=== PATIENT | female | born 1980 | race Caucasian/White ===

== ENCOUNTER 2025-02-22 10:13 | Emergency (ER) | payer OTHER, SELFPAY ==
[2025-02-22] VITALS (24 sets, daily range): BP systolic 125–161; BP diastolic 74–130; PULSE 75–81; RESP 16–18; TEMP 36.7–37.1; O2SAT 98–100
--- NOTE | ~2025-02-22 | US_ITS ---
US abdomen limited INDICATION: Evaluation of the spleen. PROCEDURE: Realtime right upper abdominal ultrasound. COMPARISON: No prior studies for comparison. FINDINGS: The pancreas is not well visualized due to bowel gas. Liver echotexture is normal without focal mass or intrahepatic biliary dilatation. There is normal directional flow in the portal vein. Gallbladder contains gallbladder polyps without evidence of adenomyomatosis. There is an echogenic fo cus at the gallbladder neck which may represent a polyp or nonshadowing stone. Common bile duct scarlet ures 2 mm. No sonographic Lundy's sign. There are multiple splenic cysts, largest measuring 1.7 cm. Spleen measures 12.4 cm. IMPRESSION: 1: Gallbladder polyps with adenomyomatosis. Possible gallstone at the gallbladder neck versus gallbla dder polyp. No secondary findings to support cholecystitis. Reviewed, dictated and finalized at location A. IMPRESSION: 1: Gallbladder polyps with adenomyomatosis. Possible gallstone at the gallbladd er neck versus gallbladder polyp. No secondary findings to support cholecystiti s.
--- NOTE | ~2025-02-22 | CT_ITS ---
CLINICAL INDICATION: Left-sided abdominal pain with intermittent diarrhea COMPARISON: None. TECHNIQUE: Multiple contiguous axial images of the abdomen and pelvis were performed following the ad ministration of with 100 mL Omnipaque-350 intravenous contrast The dose-length product (DLP) was 1291.46 mGy-cm. Automated exposure control and iterative reconstruction technique were employed. FINDINGS/OBSERVATIONS: Visualized lower thorax: The bilateral lung bases are clear. The heart is of normal size, without pericardial effusion. Small hiatal hernia is present. Liver: 8 mm focus of fluid attenuation within segment 7 of the liver, too small to characterize, but likely a cyst. The remainder of the liver otherwise demonstrates homogeneous enhancement and is not enlarged. Gallbladder and biliary system: The gallbladder is only minimally distended, and otherwise unremarkable. Pancreas: The pancreas enhances homogeneously without ductal dilatation. Spleen: 16 mm focus of decreased attenuation within the lateral margin of the lower border of the spl een, benign in morphology for which focused ultrasound may be performed for confirmation of its benig nity. Multiple splenules are also detected. The remainder of the spleen otherwise enhances homogeneously and is not enlarged. Kidneys: The bilateral kidneys enhance symmetrically without hydronephrosis or renal calculi. Adrenal glands: Unremarkable. Gastrointestinal tract: Colonic diverticulosis without surrounding inflammatory change. Fecal stasis within the colon. Appendix: Surgically absent. Vasculature: Unremarkable. Lymph nodes: No pathologically enlarged or morphologically suspicious lymph nodes within the retroperitoneum or at the root of the mesentery. Pelvic structures: The bladder is distended, and otherwise unremarkable. The uterus is surgically absent (secondary to endocervical adenocarcinoma). Bilateral ovaries are visualized. Body wall and musculoskeletal: Complex multilobulated fat-containing umbilical hernia. No significant degenerative disease within the lower thoracic or lumbosacral spine. IMPRESSION: Irregularity in the parenchyma of the spleen for which focused ultrasound may be performed for confir mation of its benignity. Subcentimeter focus of fluid attenuation within the liver, likely a cyst for which focused ultrasound of segment 7 of the liver performed for confirmation. Otherwise, no acute findings within the lower chest, abdomen or pelvis to account for patient's sympt oms. Reviewed, dictated and finalized at location A. IMPRESSION: Irregularity in the parenchyma of the spleen for which focused ultrasound may b e performed for confirmation of its benignity. Subcentimeter focus of fluid attenuation within the liver, likely a cyst for wh ich focused ultrasound of segment 7 of the liver performed for confirmation. Otherwise, no acute findings within the lower chest, abdomen or pelvis to accou nt for patient's symptoms.
--- OUTSIDE RECORDS SUMMARY | 2025-02-22 10:15 | XMS_ITS | Referral Summary ---
Author Organization [facility] Address [address] [address] Phone Care Team Providers Care Director Online Marketing Name Role Phone Idris Carvalho DO Primary Care Provider [phone] Kyle Sanchez MD Unavailable [phone] Allergies Active Allergy Reactions Criticality Noted Date Comments Latex Itching Low Reaction: ITCHING Sulfa (Sulfonamide Antibiotics) Hives Low Reaction: HIVES, Reaction: hives, , Sulfasalazine Hives Medium 12/09/2017 Medications SOOLANTRA 1 % cream Apply 1 application topically daily 8 Active vitamin b complex tablet Take 1 tablet by mouth daily Active Active Problems Problem Noted Date Diagnosed Date Abnormal findings on diagnostic imaging of breas t 03/16/2019 Breast mass 03/16/2019 Irritable bowel syndrome with diarrhea 9 h/o adenocarcinoma in situ of cervix 10/22/2018 Overview (09/12/2020): Vag hyst/BS w/electric milkers installer onc 01/15 Per electric milkers installer onc, annual cytology/HPV x 3 years, then every 5 years until 2038 Migraine with aura 10/28/2013 Overview (01/03/2017): Migraine, classical Resolved Problems Problem Noted Date Diagnosed Date Resolved Date Cyst of ovary 09/05/2020 09/05/2020 Pain in pelvis 09/05/2020 09/05/2020 Nipple crusting 08/08/2018 11/25/2018 Immunizations Immunization Administration Dates Next Due Influenza, Quadrivalent, Spl it, Preservative Free, Intramuscular 08/07/2020 Influenza, Unspecified 07/30/2018 Social History Tobacco Use Types Packs/Day Years Used Date Smoking Tobacco: Never Smokeless Tobacco: Never Alcohol Use Standard Drinks/Week Comments No 0 (1 standard drink = 0.6 oz pur e alcohol) Humiliation, Afraid, Rape, and Kick questionnair e Answer Date Recorded Within the last year, have y ou been afraid of your partner or ex-partner? No 09/05/2020 Within the last year, have y ou been humiliated or emotionally abused in other ways by your partner or ex-partner? No Within the last year, have y ou been kicked, hit, slapped, or otherwise physically hurt by your partner or ex-partner? No 09/05/2020 Within the last year, have y ou been raped or forced to have any kind of sexual activity by your partner or ex-partner? No 09/05/2020 Social Connection and Isolation Panel [NHANES] A nswer Date Recorded Frequency of Communication with Friends and Fami ly Not on file 09/05/2020 Frequency of Social Gatherings with Friends and Family Not on file 09/05/2020 Attends Muslim Services Not on file 09/05 Active Member of Clubs or Organizations Not on f ile 09/05/2020 Attends Club or Organization Meetings Not on lucrecia e 09/05/2020 Are you , , di vorced, , never , or living with a partner? 09/05/2020 Exercise Vital Sign Answer Date Recorde d On average, how many days pe r week do you engage in moderate to strenuous exercise (like a brisk walk)? 7 days 09/05/2020 On average, how many minutes do you engage in exercise at this level? 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 on file Not on lucrecia e Not on file Last Filed Vital Signs Vital Sign Reading Time Taken Comments Blood Pressure 120/80 2023 9:07 AM CDT Pulse 68 03/04/2019 2:27 PM CDT Temperature 36.7 C (98.1 F) 03/04/2019 2:27 PM CDT Respiratory Rate 16 03/04/2019 2:27 PM CDT Oxygen Saturation 100% 03/04/2019 2:27 PM CDT Inhaled Oxygen Concentration - - Weight 99.3 kg (219 lb) 2023 9:07 AM CDT Height 167.6 cm (5' 6) 2023 9:07 AM CDT Body Mass Index 35.35 2023 9:07 AM CDT Plan of Treatment Not on file Medical Devices Implanted Type Area Limnologist Device Identifier Shelf Expiration Date Model / Serial / Lot iPling Partnership Marker Biospy Site Mini Cork Shape Securmark Dakota-Coriero - [id number] Implanted:Qty: 1 on 01/02/2024 by Daquan Morales MD at [facility] Clip Left: Breast [employer] Partnership [id number] 09/02/2024 OLAFK-CORI ERO / / [id number] [employer] Limited Partnership Trimark Rigid End Hourglass Marker Breast Biopsy Titanium [id number]-[id number]-8 s-13 - [id number] Implanted:Qty: 1 on 01/16/2024 by Daquan Morales MD at [facility] [employer] Partnership [id number] 04/17/2024 TRIMARK-E VIVA-2S-1 3 / / [id number] Procedures Procedure Name Priority Date/Time Associated Diagnosis Comments DIAGNOSTIC MAMMOGRAM BILATERAL W MIKA Schedule Routine, Read Routine (OP Routine) 09/30/2024 9:41 AM FUR TRAPPER Abnormal finding on imaging PAP AND HIGH RISK HPV, REFLEX TO GENOTYPING Routine 2023 9:56 AM CDT Encounter for well woman exam from Last 3 Months or Most Recently Relevant to Health Maintenance Results * Diagnostic Mammogram Bilateral W Mika (09/30/2024 9:41 AM FUR TRAPPER) Anatomical Region Laterality Modality Breast Bilateral Mammography 09/30/2024 9:47 AM FUR TRAPPER Impressions 09/30/2024 9:47 AM FUR TRAPPER No mammographic evidence to suggest malignancy is seen. The patient may return to screening mammography as per ACR guidelines. OVERALL FINAL ASSESSMENT: BI-RADS Category 2: Benign. Electronically signed by: Patricia Garcia M.D. Narrative 09/30/2024 9:47 AM FUR TRAPPER EXAMINATION: DIGITAL DIAGNOSTIC BILATERAL MAMMOGRAM INCLUDING CAD AND BILATERAL DIGITAL BREAST TOMOSYNTHESIS HISTORY: Follow-up biopsies on the left COMPARISON: Multiple studies from 2023 TECHNIQUE: Digital mammographic views of the bilateral were performed, including computer aided detection (CAD) and bilateral digital breast tomosynthesis (DBT). BREAST PARENCHYMAL COMPOSITION: The breast tissue shows scattered fibroglandular elements. MAMMOGRAM FINDINGS: There are 2 biopsy markers on the left. No suspicious masses are seen. No suspicious calcifications are seen. There is no unexplained architectural distortion. There is no skin thickening. No axillary adenopathy is seen mammographically. us Daquan Morales MD IMG MAMMO PROCEDURES Final Res ult * Pap and High Risk HPV and Genotyping (Cytology Component) (2023 9:56 AM CDT) Thin prep (Pap test) 2023 9:56 AM CDT 2023 6:34 PM CDT Narrative PATHOLOGY [facility] - 01/07/2024 6:37 AM CDT EPIC results best viewed via link to PDF [facility] [place] [address] Note to Patients: This report may contain a detailed description of human tissue sent by a health care provider to the laboratory for pathologic evaluation. The content of this report is essential for diagnosis and may provide important critical findings. This information may be unfamiliar to patients to review without a medical professional present. It is advised that the patient review this report in the presence of a health care provider who can answer questions and explain the details. CYTOPATHOLOGY REPORT FINAL Patient Name: ZEHRA TO Gender: F : 1980 (Age: 43) Address: [address] [place] [address] , [place] [address] [facility] #: [id number] Service: DEFAULT Location: Patient Type: E SPECIMEN Taken: 2023 Received: 2023 Accessioned: 12/31/2023 Reported: 01/07/2024 Physician(s): Diana Peres M.D. FINAL INTERPRETATION SOURCE OF SPECIMEN Liquid based Thin Prep pap with HPV: STATEMENT OF ADEQUACY - Satisfactory for evaluation - Endocervical cells/transformation zone sample absent GENERAL CATEGORIZATION: - Negative for squamous intraepithelial lesion or malignancy Comments (Normal-Negative for High Risk HPV) HPV HR 16- Not detected HPV HR 18-Not detected HPV HR non 16/18- Not detected Interpretive Data Nucleic acid amplification for detection of high-risk Human Papilloma virus (HPV) is performed by the Kimberly James 6800 HPV test. This assay specifically detects HPV- 16 and HPV-18 genotypes. The following HPV genotypes are detected as high-risk HPV: HPV-31, 33, 35, 39, 45, 51, 52, 56, 58, 59, 66, and 68. This assay has been approved by the [place] States Food and Drug Administration for detection of HPV in cervical specimens collected by a physician using an endocervical brush/spatula or cervical broom and placed in the ThinPrep Pap Test PreservCyt collection containers. The performance characteristics of this test have been verified by the [facility] laboratory. Correlate with reported cytology results, as applicable. Interpretive data last revised 23 This specimen has been rescreened in accordance with this laboratory's Cotton Breeder Program. adrianne/01/07/2024 06:37 Therese Dooley MS, CT (ASCP) Report Electronically Reviewed and Signed Out By TOMER Kuo(ASCP) 01/07/2024 06:37:49 Cervicovaginal Cytology (Pap Test) Disclaimer: The Pap test is a screening test used to detect cervical cancer and its precursors; it is not a diagnostic procedure. False negative and false positive results do occur. Pap test results should be interpreted in the context of pertinent clinical information and biopsy results as indicated. [facility] Clinical Laboratory Improvement Amendments (CLIA) mandate that cytologic and histologic results be correlated for laboratory quality control engineer & improvement standards. FOR ALL HIGH-GRADE CASES we request submission of follow-up histological material and/or reports that have not been previously provided so that we may fulfill said required standards. Gross Description A. Liquid based Thin Prep pap with HPV: Vaginal - Screening ThinPrep Clinical Diagnosis and History Last Menstrual Period: hyst The patient is a 43 year old woman with screening. Report Images and scanned documents, if included only viewable in PDF version The performance characteristics of some immunohistochemical stains, in-situ hybridization and fluorescence in-situ hybridization tests and immunophenotyping by flow cytometry cited in this report (if any) were determined by the Surgical Pathology Department at [facility] as part of an ongoing quality control microbiologist program and in compliance with federally mandated regulations drawn from the Clinical Laboratory Improvement Act of 1988 (CLIA '88). Some of these tests rely on the use of analyte specific reagents and are subject to specific labeling requirements by the US Food and Drug Administration. Such diagnostic tests may only be performed in a facility that is certified by the Department of Health and Human Services as a high complexity laboratory under CLIA '88. The FDA has determined that such clearance or approval is not necessary. This test is used for clinical purposes. It should not be regarded as investigational or for research. Nevertheless, federal rules concerning the medical use of analyte specific reagents require that the following disclaimer be attached to the report: This test was developed and its performance characteristics determined by the Surgical Pathology Department of [facility]. It has not been cleared or approved by the U. S. Food and Drug Administration. Diana Peres MD LAB CYTOLOGY ORDERABLES F inal Result [facility] from Last 3 Months or Most Recently Relevant to Health Maintenance Insurance [facility] PPO [facility] Advance Directives For more information, please contact: [phone] * Full Code (Latest Code Status on File) Date Activated Date Inactivated Comments 01/25/2019 12:21 PM 01/25/2019 11:33 PM Care Teams Director Online Marketing Relationship Specialty Start Date End Date Idris Carvalho DO PCP - General 04/29/14 Kyle Sanchez MD Consulting Physician Obstetrics and Gynecology 10/13/18
--- OUTSIDE RECORDS SUMMARY | 2025-02-22 10:15 | XMS_ITS | Clinical Summary ---
Author Organization [facility] Address [address] [address] Phone Care Team Providers Care Vegetable Farming Supervisor Name Role Phone Idris Carvalho DO Primary Care Provider [phone] Kyle Sanchez MD Unavailable [phone] Allergies Active Allergy Reactions Criticality Noted Date [...] of cervix 10/22/2018 Overview (09/12/2020): Vag hyst/BS w/livestock sales representative onc 01/15 Per livestock sales representative onc, annual cytology/HPV x 3 years, then every 5 years until 2038 Migraine with aura 10/28/2013 Overview (01/03/2017): Migraine, classical Resolved Problems Problem Noted Date Diagnosed Date Resolved Date Cyst of ovary 09/05/2020 09/05/2020 Pain in pelvis 09/05/2020 09/05/2020 Nipple crusting 08/08/2018 11/25/2018 Immunizations Immunization Administration Dates Next Due Influenza, Quadrivalent, Spl it, Preservative Free, Intramuscular 08/07/2020 Influenza, Unspecified 07/30/2018 Surgical History Surgery Date Site/Laterality Comments ENDOMETRIAL ABLATION 08/29/2015 - 09/28/2015 for menorrhagia/fibroids, Novasure LAPAROSCOPIC APPENDECTOMY 09/29/2006 - 09/28/2007 CONIZATION 09/29/2018 - 09/28/2019 APPENDECTOMY WISDOM TOOTH EXTRACTION VAGINAL HYSTERECTOMY 12/28/2018 - 01/26/2019 salpingectomies BREAST BIOPSY HYSTERECTOMY BREAST BIOPSY 01/02/2024 Left BREAST BIOPSY 01/16/2024 Left Medical History Medical History Date Comments Depression AVM (arteriovenous malformation) brain no intervention reported as stable Rosacea IBS (irritable bowel syndrome) PONV (postoperative nausea and vomiting) Cyst of ovary 09/05/2020 Pain in pelvis 09/05/2020 Family History Medical History Relation Name Comments Alzheimer's disease Father Heart attack Father Alzheimer's disease Father's Brother Uterine cancer Maternal Grandmother Breast cancer Maternal cousin Other Other 1 Asthma Other 2 Other Other 3 Family history of Lee's palsy; Multiple sclerosis Other 4 Family hi story of Multiple sclerosis; Other Other 5 Family history of Peripheral nerve disease; Throat cancer Paternal Grandfather Alzheimer's disease Paternal Grandmother Bone cancer Paternal Grandmother Breast cancer Paternal Grandmother Cervical cancer Paternal Grandmother Cervical cancer Sister Colon cancer Neg Hx Ovarian cancer Neg Hx Relation Name Status Comments Father (Age 74) from Alzhe augusto's & parkinsonism Father's Brother Maternal Grandmother Maternal cousin Mother Alive Other 1 Other 2 Other 3 Other 4 Other 5 Paternal Grandfather Paternal Grandmother Sister Alive Social History Tobacco Use Types Packs/Day Years [...] and Family Not on file 09/05/2020 Attends Denominational Services Not on file 09/05 Active Member [...] PM CDT Legal Sex Female 3:10 AM MOUNTER SMOKING PIPE Gender Identity Female 09/09/2019 9:04 AM MOUNTER SMOKING PIPE Sexual Orientation Straight 09/09/2019 9: 04 AM MOUNTER SMOKING PIPE 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 labor x 2, bedrest & terb pump until delivery. No GDM, HTN/preE/PPH/PPD. Did not breastfeed. Last Filed Vital Signs Vital Sign Reading [...] 2023 9:07 AM CDT Plan of Treatment Health Maintenance Due Date Last Done Comments Depression Screening 1980 Hepatitis C Screening 1980 DTaP/Tdap/Td Vaccine (1 - Tdap) 12/31/1991 Varicella Vaccines (1 of 2 - 13+ 2-dose series) 1993 Hepatitis B Screening 1998 Regular Well Visit/Exam 18-64 12/29/2024 2023, 09/05/2020, 10/13/2018 Influenza Vaccine (Season Ended) 2025 08/07/2020, 07/30/2018 Breast Cancer Screening-Mammogram 09/30/2025 09/30/2024, 11/13/2023, 09/14/2019 Cervical Cancer Screening Discontinued 2023, 2023, 09/05/2020 HPV Vaccines Aged Out No longer eligi ble based on patient's age to complete this topic Pneumococcal vaccine <65 Aged Out No longer eligible based on patient's age to complete this topic Medical Devices Implanted Type Area Stencil Typist Device Identifier Shelf Expiration Date Model / Serial / Lot Hologic Limited Partnership Marker Biospy Site Mini Cork Shape Securmark Yasemink-Celero - [id number] Implanted:Qty: 1 on 01/02/2024 by Daquan Morales MD at [facility] Clip Left: Breast [employer] Partnership [id number] 09/02/2024 TERRI-CORI ERO / / [id number] Hologic Limited Partnership Trimark Rigid End Hourglass Marker Breast Biopsy Titanium Svvafow-Mgwhu-3 s-13 - [id number] Implanted:Qty: 1 on 01/16/2024 by Daquan Morales MD at [facility] [employer] Partnership [id number] 04/17/2024 LAKESHA-Danay JENNINGS-2S-1 3 / / [id number] Procedures Procedure Name Priority Date/Time Associated Diagnosis Comments DIAGNOSTIC MAMMOGRAM BILATERAL W MIKA Schedule Routine, Read Routine (OP Routine) 09/30/2024 9:41 AM MOUNTER SMOKING PIPE Abnormal finding on imaging PAP AND HIGH RISK HPV, REFLEX TO GENOTYPING Routine 2023 9:56 AM CDT Encounter for well woman exam from Last 3 Months or Most Recently Relevant to Health Maintenance Results * Diagnostic Mammogram Bilateral W Mika (09/30/2024 9:41 AM MOUNTER SMOKING PIPE) Anatomical Region Laterality Modality Breast Bilateral Mammography 09/30/2024 9:47 AM MOUNTER SMOKING PIPE Impressions 09/30/2024 9:47 AM MOUNTER SMOKING PIPE No mammographic evidence to suggest malignancy is seen. The patient may return to screening mammography as per ACR guidelines. OVERALL FINAL ASSESSMENT: BI-RADS Category 2: Benign. Electronically signed by: Patricia Garcia M.D. Narrative 09/30/2024 9:47 AM MOUNTER SMOKING PIPE EXAMINATION: DIGITAL DIAGNOSTIC BILATERAL MAMMOGRAM INCLUDING CAD [...] CDT 2023 6:34 PM CDT Narrative PATHOLOGY [facility] - 01/07/2024 6:37 AM CDT EPIC results best viewed via link to PDF [facility] [place] [address] Note to Patients: This report may contain [...] Gender: F : 1980 (Age: 43) Address: [address] [place] [id number] [facility] #: [id number] Service: DEFAULT Location: Patient Type: [facility] SPECIMEN Taken: 2023 Received: 2023 Accessioned: 12/31/2023 [...] this test have been verified by the [facility] laboratory. Correlate with reported cytology results, as applicable. Interpretive data last revised 23 This specimen has been rescreened in accordance with this laboratory's Adobe Ball Mixer Program. adrianne/01/07/2024 06:37 Therese Dooley MS, CT [...] clinical information and biopsy results as indicated. [facility] Clinical Laboratory Improvement Amendments (CLIA) mandate that cytologic and histologic results be correlated for laboratory it quality analyst & improvement standards. FOR ALL HIGH-GRADE CASES [...] determined by the Surgical Pathology Department at [facility] as part of an ongoing quality assurance monitor program and in compliance with federally mandated [...] determined by the Surgical Pathology Department of [facility]. It has not been cleared or approved by the U. S. Food and Drug Administration. Diana Peres MD LAB CYTOLOGY ORDERABLES F inal Result [facility] from Last 3 Months or Most Recently Relevant to Health Maintenance Insurance [facility] PPO [facility] PPO [employer] PPO Advance Directives For more information, please contact: [phone] * Full Code (Latest Code Status on File) Date Activated Date Inactivated Comments 01/25/2019 12:21 PM 01/25/2019 11:33 PM Care Teams Vegetable Farming Supervisor Relationship Specialty Start Date End Date Idris Carvalho DO PCP - General 04/29/14 Kyle Sanchez MD Consulting Physician Obstetrics and Gynecology 10/13/18
--- OUTSIDE RECORDS SUMMARY | 2025-02-22 10:15 | XMS_ITS | Clinical Summary ---
Author Organization [facility] Address [address] [place] [address] Care Team Providers Care Research Quality Assurance Specialist Name Role Phone Idris Carvalho DO Primary Care Provider [phone] Source Comments [facility],non-owned Affiliates and Associated Physician Practices is amultiple site organization consisting of ambulatory clinics and hospital sitesin [place], [place], [place] and [place]. This disclosure is being madepursuant to the Care Everywhere program and may not contain all informatio navailable regarding this patient. Last updated 18.[facility] Allergies Active Allergy Reactions Criticality Noted Date Comments Sulfa Drugs Urticaria Medium 12/09/2017 Medications * Be aware that medications may not be up to date on this document. Alwaysverify current medications with the patient. Lactobacillus (PROBIOTIC ACIDOPHILUS PO) Acti ve Family History Medical History Relation Name Comments Alzheimer's Disease Father Other - Cardiac Father [place] x2, first at age 52 Osteoporosis Mother Relation Name Status Comments Father Mother Alive Social History Tobacco Use Types Packs/Day Years Used Date Smoking Tobacco: Never Smokeless Tobacco: Never Comments No Sex and Gender Information Value Date Recorded Sex Assigned at Not on file Legal Sex Female 7:11 AM CDT Gender Identity Not on file Sexual Orientation Not on file Last Filed Vital Signs Vital Sign Reading Time Taken Comments Blood Pressure 118/80 07/02/2019 9:58 AM CDT Pulse 90 07/02/2019 9:58 AM CDT Temperature 36.8 C (98.2 F) 07/02/2019 9:58 AM CDT Respiratory Rate 16 07/02/2019 9:58 AM CDT Oxygen Saturation 97% 07/02/2019 9:58 AM CDT Inhaled Oxygen Concentration - - Weight 73.9 kg (163 lb) 07/02/2019 9:58 AM CDT Height 168.9 cm (5' 6.5) 07/02/2019 9:58 AM CDT Body Mass Index 25.91 07/02/2019 9:58 AM CDT Plan of Treatment Health Maintenance Due Date Last Done Comments LIPID TESTING 1980 MAMMOGRAM 1980 HIV SCREENING 12/31/1995 HEPATITIS C SCREENING 12/26/1998 DTAP/TDAP/TD VACCINES (1 - Tdap) 12/31/1999 HEPATITIS B VACCINE (1 of 3 - 19+ 3-dose series) 12/31/1999 COVID-19 VACCINE ( - 2023-2 5 season) 2024 DEPRESSION SCREENING 09/29/2024 INFLUENZA VACCINE (Season Ended) 2025 07/30/20 18 ZOSTER VACCINE (1 of 2) 2030 HIB VACCINE Aged Out No longer eligi ble based on patient's age to complete this topic HPV VACCINE Aged Out No longer eligi ble based on patient's age to complete this topic MENINGOCOCCAL (Group B) VACC INE SHARED DECISION-MAKING Aged Out No longer eligibl e based on patient's age to complete this topic MENINGOCOCCAL GROUPS A/C/Y/W VACCINE Aged Out No longer eligible b ased on patient's age to complete this topic PNEUMOCOCCAL VACCINE Aged Out No long er eligible based on patient's age to complete this topic Insurance ANTHEM Care Teams Research Quality Assurance Specialist Relationship Specialty Start Date End Date Idris Carvalho DO PCP - General Internal Medicine 12/09/17
--- OUTSIDE RECORDS SUMMARY | 2025-02-22 10:15 | XMS_ITS | Clinical Summary ---
Author Organization [facility] Address [address] [place] [address] Phone Care Team Providers Care Cement Based Materials Pump Tender Name Role Phone Idris Carvalho DO Primary Care Provider Allergies Active Allergy Reactions Criticality Noted Date Comments Sulfa (Sulfonamide Antibiotics) Hives High 02/2015 Medications SUMAtriptan (IMITREX) 50 mg tablet Take 50 mg by mouth every 2 hours as needed for Headaches may repeat in 2 hours; max dose 200mg in 24 hours . Active NAPROXEN SODIUM (ALEVE ORAL) Take by mouth. Ac tive ondansetron (ZOFRAN) 4 mg Tablet Take 1 Tab (4 mg) by mouth every 8 hours as needed for Nausea/Emesis. 20 Tab None 5 Active HYDROcodone-casimiro taminophen (NORCO) 5-325 mg tablet Take 2 Tabs by mouth every 6 hours as needed for Pain. Max Daily Amount: 8 Tabs 20 Tab None 5 Active Social History Tobacco Use Types Packs/Day Years Used Date Smoking Tobacco: Never Comments Unknown Sex and Gender Information Value Date Recorded Sex Assigned at Not on file Legal Sex Female 1:32 PM CDT Gender Identity Not on file Sexual Orientation Not on file Last Filed Vital Signs Vital Sign Reading Time Taken Comments Blood Pressure 118/69 01/02/2015 5:30 PM CDT Pulse 96 01/02/2015 1:39 PM CDT Temperature 36.7 C (98.1 F) 01/02/2015 1:39 PM CDT Respiratory Rate 14 01/02/2015 4:30 PM CDT Oxygen Saturation 99% 01/02/2015 5:30 PM CDT Inhaled Oxygen Concentration - - Weight 63.5 kg (140 lb) 01/02/2015 1:39 PM CDT Height 167.6 cm (5' 6) 01/02/2015 1:39 PM CDT Body Mass Index 22.6 01/02/2015 1:39 PM CDT Plan of Treatment Health Maintenance Due Date Last Done Comments DTAP/TDAP/TD VACCINES (1 - Tdap) 12/31/1999 HEPATITIS B VACCINES (1 of 3 - 19+ 3-dose series) 12/31/1999 HPV/Cotest (21-29) 2001 CERVICAL CANCER SCREENING 2010 HPV/Cotest (30-65) 2010 PAP SMEAR 2010 BREAST CANCER SCREENING 2020 INFLUENZA VACCINE (#1) 2024 HPV VACCINES Aged Out No longer eligi ble based on patient's age to complete this topic Insurance [id number] BLUE ACCESS CHOICE Care Teams Cement Based Materials Pump Tender Relationship Specialty Start Date End Date Idris Carvalho DO PCP - General 09/14/15
[2025-02-22] MEDS: SODIUM CHLORIDE 0.9% IV 1,000 ML 999 ML IV CONT (12:21)
[2025-02-22 12:33] LABS: Basophils Percent Auto 0.2 % (0.2-1.2); Eosinophils Percent Auto 0.6 % (0-4.4); Hematocrit 43.9 % (37.0-47.0); Hemoglobin 14.1 g/dL (12.0-15.0); Immature Granulocyte Absolute 0.01 K/mm3 (0.00-0.031); Immature Granulocyte Percent A 0.2 % (0-0.5); Lymphocytes Absolute Auto 1.53 K/mm3 (0.9-3.2); Lymphocytes Percent Auto 31.3 % (18.3-44.2); Mean Corpuscular HGB Conc 32.1 g/dl (32-36); Mean Corpuscular Hemoglobin 27.6 pg (26-34); Mean Corpuscular Volume 85.9 fl (80-100); Mean Platelet Volume 11.8 fl (7.4-10.4); Monocytes Absolute Auto 0.3 K/mm3 (0.1-0.6); Neutrophils Percent Auto 60.7 % (45.5-73.1); Platelet Count Result 261 k/mm3 (150-375); Red Blood Count 5.11 M/mm3 (4.2-5.4); Red Cell Distribution Width 13.1 % (11.5-14.5); White Blood Count 4.9 K/mm3 (4.5-10.0)
[2025-02-22 12:34] LABS: Add Urine Microscopic? NO; Appearance Urine Clear (Clear); Bilirubin Urine Negative (Negative); Blood Urine Negative (Negative); Color Urine Yellow (Yellow); Glucose Urine UA Negative (Negative); Ketones Urine Negative (Negative); Leukocyte Esterase Ur Negative LEU/UL (Negative); Nitrate Urine Negative (Negative); Protein Urine Negative (Negative); Specific Grav Ur 1.022 (1.001-1.035); Urobilinogen Urine 0.2 mg/dL (<2.0)
[2025-02-22 12:43] LABS: Alanine Aminotransferase 16 U/L (6-35); Albumin Level 4.6 g/dL (3.5-5.1); Alkaline Phosphatase 74 U/L (38-126); Anion Gap 7 mmol/L (4-12); Aspartate Amino Transferase 24 U/L (14-36); Bilirubin,Total 0.4 mg/dL (0.2-1.3); Blood Urea Nitrogen 11 mg/dL (7-17); Calcium 8.8 mg/dL (8.4-10.2); Carbon Dioxide 28 mmol/L (22-30); Chloride 105 mmol/L (98-107); Estimated CRCL calculation 102 ml/min; Estimated Glomerular Filt Rate > 60; Glucose 85 mg/dL (65-110); Lipase 106 U/L (23-300); Potassium 3.6 mmol/L (3.4-5.0); Sodium 140 mmol/L (137-145)
--- OUTSIDE RECORDS SUMMARY | 2025-02-22 12:46 | XMS_ITS | Clinical Summary ---
Author Organization [facility] Address [address] [place] [address] Phone Care Team Providers Care Guest Services Attendant Name Role Phone Idris Carvalho DO Primary [...] age to complete this topic Insurance [id number] BLUE ACCESS CHOICE Care Teams Guest Services Attendant Relationship Specialty Start Date End Date Idris Carvalho DO PCP - General 09/14/15
--- OUTSIDE RECORDS SUMMARY | 2025-02-22 12:46 | XMS_ITS | Clinical Summary ---
Author Organization [facility] [employer] Address [address] [place] [address] Care Team Providers Care Public Address Technician Name Role Phone Idris Carvalho DO Primary Care Provider [phone] Source Comments [facility] [employer],non-owned Affiliates and Associated Physician Practices is amultiple site organization consisting of ambulatory clinics and hospital sitesin [place], [place], [place] and [place]. This disclosure is being madepursuant to the Care Everywhere program and may not contain all informatio navailable regarding this patient. Last updated 18.[facility] Allergies Active Allergy Reactions Criticality Noted Date Comments Sulfa Drugs Urticaria Medium 12/09/2017 Medications * Be aware that medications may not be up to date on this document. Alwaysverify current medications with the patient. Lactobacillus (PROBIOTIC ACIDOPHILUS PO) Acti ve Family History Medical History Relation Name Comments Alzheimer's Disease Father Other - Cardiac Father [place] x2, first at age 52 Osteoporosis Mother [...] complete this topic Insurance ANTHEM Care Teams Public Address Technician Relationship Specialty Start Date End Date Idris Carvalho DO PCP - General Internal Medicine 12/09/17
--- NOTE | 2025-02-22 16:04 | ED.GENADULT ---
HPI - General Adult General Chief complaint: Abdominal Pain Stated complaint: abd pain Time Seen by Provider: 02/22/25 12:02 History of Present Illness HPI narrative: [age] old female with history of ovarian cancer status post hysterectomy and IBS presents to the emergency department for evaluation of multiple days of diarrhea, left lower quadrant tenderness to palpation and some blood in her stool. Related Data Allergies Allergy/AdvReac Type Severity Reaction Status Date / Time latex Allergy Unknown Itching Verified 02/22/25 10:22 Sulfa (Sulfonamide Allergy Unknown Hives Verified 02/22/25 10:22 Antibiotics) sulfanilamide Allergy Unknown Hives Verified 02/22/25 10:22 Review of Systems Review of Systems: All systems reviewed & are unremarkable except as noted in HPI and below PMFSH Past Medical History Medical History Fractures IBS (irritable bowel syndrome) Heartburn Chicken pox Migraine Endocervical adenocarcinoma Anxiety Breast mass, right Surgical History Surgical History H/O: hysterectomy December 2018 History of appendectomy 2006 H/O cervical biopsy 2008 Family History Family History Mother Family history of irritable bowel syndrome Father Family history of coronary artery disease Alzheimer disease Social History Social History (Updated 01/21/24 @ 14:58 by Tosha Montemayor [facility]) Social History: Caffeine-Coffee Smoking status: Never smoker Alcohol intake: never Substance use: never Substance use type: does not use Do You Feel Safe in your Home?: Yes Lack of Transportation: No Lack of Food: Never True Current Housing: I Have Housing Concerned About Future Housing: No Difficulty Paying Gas/Electric Bills: No Difficulty Paying for Meds: No Currently Unemployed: No Education: Bachelor's Degree Difficulty w/ Childcare or Family Care: No Exam Narrative: APPEARANCE: Well appearing, no pain, no distress, well-nourished. HEAD: normocephalic, atraumatic. EYES: PERRLA/EOMI, conjunctivae clear. NOSE: Normal no drainage THROAT: Pharynx clear, no exudate. NECK: Supple. No adenopathy, no masses. RESPIRATORY: Airway patent, respirations nonlabored. Clear to auscultation bilaterally, no rales, rhonchi, wheezing. CARDIOVASCULAR: Regular rate and rhythm without murmurs rubs or gallops. ABDOMINAL: Left lower quadrant tenderness to palpation MUSCULOSKELETAL: Moves all extremities. Strength/ROM intact, No edema, No calf tenderness. NEURO: Alert. Cranial nerves II through XII intact. Good gait. Good coordination SKIN: Warm, dry. Normal Color Course Vital Signs Vital signs: Vital Signs Temperature 98.1 F 02/22/25 10:19 Pulse Rate 81 02/22/25 10:19 Respiratory Rate 16 02/22/25 10:19 Blood Pressure 128/86 02/22/25 10:19 Pulse Oximetry 98 02/22/25 10:19 Oxygen Delivery Room Air 02/22/25 10:19 Temperature 98.7 F 02/22/25 12:19 Pulse Rate 75 02/22/25 12:19 Respiratory Rate 18 02/22/25 12:19 Blood Pressure 129/91 H 02/22/25 15:47 Pulse Oximetry 100 02/22/25 15:47 Oxygen Delivery Room Air 02/22/25 10:19 Medical Decision Making [facility] Narrative Medical decision making narrative: [age] old female presents to the emergency department for evaluation for left lower quadrant abdominal pain. Patient is currently afebrile with no leukocytosis, hemoglobin of 14.1. Patient has normal platelet count. Patient has no acute abnormalities on her CMP including normal T bili AST ALT alk-phos and lipase. UA was negative for infection. CT abdomen pelvis showed irregularity in the parenchyma of the spleen for which focused ultrasound may be performed for confirmation of its benignity. Subcentimeter focus of fluid attenuation within the liver, likely a cyst for which focused ultrasound of segment 7 of the liver performed for confirmation. Otherwise, no acute findings within the lower chest, abdomen or pelvis to account for patient's symptoms. Ultrasound was ordered and showed gallbladder polyps with adenomyomatosis. Possible gallstone at the gallbladder neck versus gallbladder polyp. No secondary findings to support cholecystitis. Patient has no right upper quadrant tenderness to palpation has normal liver enzymes. Low concern for acute cholecystitis. At time of evaluation patient does complain of some mild left lower quadrant pain has minimal tenderness to palpation. Patient was updated on the results of her workup.. Patient was advised to follow a clear liquid diet for the next few days. Patient was comfortable plan for discharge and close follow-up. Patient was advised to follow a clear liquid diet for the next 1-3 days. Patient was also encouraged close follow-up with GI. Differential Diagnosis Differential Diagnosis: Gastritis, colitis, diverticulitis, hepatomegaly, splenomegaly, acute cholecystitis, cholelithiasis Vital Signs Vital Signs: Vital Signs Temperature 98.1 F 02/22/25 10:19 Pulse Rate 81 02/22/25 10:19 Respiratory Rate 16 02/22/25 10:19 Blood Pressure 128/86 02/22/25 10:19 Pulse Oximetry 98 02/22/25 10:19 Oxygen Delivery Room Air 02/22/25 10:19 Temperature 98.7 F 02/22/25 12:19 Pulse Rate 75 02/22/25 12:19 Respiratory Rate 18 02/22/25 12:19 Blood Pressure 129/91 H 02/22/25 15:47 Pulse Oximetry 100 02/22/25 15:47 Oxygen Delivery Room Air 02/22/25 10:19 Lab Data Lab results reviewed: Yes I reviewed the patient's lab results. 02/22/25 12:24 02/22/25 12:24 Labs: Lab Results 02/22/25 Range/Units 12:24 WBC 4.9 (4.5-10.0) K/mm3 RBC 5.11 (4.2-5.4) M/mm3 Hgb 14.1 (12.0-15.0) g/dL Hct 43.9 (37.0-47.0) % MCV 85.9 (80-100) fl MCH 27.6 (26-34) pg MCHC 32.1 (32-36) g/dl RDW 13.1 (11.5-14.5) % Plt Count 261 (150-375) k/mm3 MPV 11.8 H (7.4-10.4) fl Immature Gran % (Auto) 0.2 (0-0.5) % Neut % (Auto) 60.7 (45.5-73.1) % Lymph % (Auto) 31.3 (18.3-44.2) % [place] % (Auto) 7.0 (2.6-8.5) % Eos % (Auto) 0.6 (0-4.4) % Baso % (Auto) 0.2 (0.2-1.2) % Lymph # (Auto) 1.53 (0.9-3.2) K/mm3 [place] # (Auto) 0.3 (0.1-0.6) K/mm3 Eos # (Auto) 0.0 (0-0.3) K/mm3 Baso # (Auto) 0.0 (0.0-0.1) K/mm3 Abs Immat Gran (auto) 0.01 (0.00-0.031) K/mm3 Absolute Neuts (auto) 3.0 (1.3-6.7) K/mm3 Absolute Nucleated RBC 0.000 (0.0-0.012) K/mm3 Nucleated RBC % 0.0 (0.0-0.2) % Sodium 140 (137-145) mmol/L Potassium 3.6 (3.4-5.0) mmol/L Chloride 105 (98-107) mmol/L Carbon Dioxide 28 (22-30) mmol/L Anion Gap 7 (4-12) mmol/L BUN 11 (7-17) mg/dL Creatinine 0.74 (0.7-1.0) mg/dL Estim Creat Clear Calc 102 ml/min Estimated GFR > 60 (59 - ) Glucose 85 (65-110) mg/dL Calcium 8.8 (8.4-10.2) mg/dL Total Bilirubin 0.4 (0.2-1.3) mg/dL AST 24 (14-36) U/L ALT 16 (6-35) U/L Alkaline Phosphatase 74 (38-126) U/L Total Protein 8.0 (6.3-8.2) g/dL Albumin 4.6 (3.5-5.1) g/dL Lipase 106 (23-300) U/L Urine Color Yellow (Yellow) Urine Appearance Clear (Clear) Urine pH 6.0 (5.0-9.0) Ur Specific [place] 1.022 (1.001-1.035) Urine Protein Negative (Negative) mg/dL Urine Glucose (UA) Negative (Negative) mg/dL Urine Ketones Negative (Negative) mg/dL Ur Blood (Man) Negative (Negative) Urine Nitrate Negative (Negative) Urine Bilirubin Negative (Negative) Urine Urobilinogen 0.2 (<2.0) mg/dL Leukocyte Esterase Rfl Negative (Negative) SIM/UL Imaging Data Radiologist's impression: Impressions Abdomen/Pelvis CT 02/22/25 13:09 IMPRESSION: Irregularity in the parenchyma of the spleen for which focused ultrasound may be performed for confirmation of its benignity. Subcentimeter focus of fluid attenuation within the liver, likely a cyst for which focused ultrasound of segment 7 of the liver performed for confirmation. Otherwise, no acute findings within the lower chest, abdomen or pelvis to account for patient's symptoms. Abdomen Ultrasound 02/22/25 15:05 IMPRESSION: 1: Gallbladder polyps with adenomyomatosis. Possible gallstone at the gallbladder neck versus gallbladder polyp. No secondary findings to support cholecystitis. Discharge Plan Discharge Clinical Impression: Diarrhea, Left lower quadrant abdominal pain Patient Disposition: Home Condition: Stable Instructions: Antibiotic Form, Clear Liquid Diet (ED), Acute Diarrhea (ED), Abdominal Pain (ED) Additional Instructions: Follow a clear liquid diet for the next 1-3 days to help with your diarrhea symptoms. Your imaging today did show some cyst within the spleen and cysts within the liver. The ultrasound of your gallbladder did show some potential gallbladder polyps. Have close follow-up with your primary care physician and with GI regarding these findings. Patient Language: Marshallese Prescriptions: No Action hydroxyzine HCl 25 mg tablet 25 mg PO DAILY PRN (Reason: anxiety/sleep) Qty: 30 1RF escitalopram oxalate [Lexapro] 10 mg tablet 10 mg PO DAILY Qty: 30 0RF Zepbound 2.5 mg/0.5 mL pen injector 2.5 mg subcut WEEKLY Qty: 2 0RF Rx Instructions: for 4 weeks cholecalciferol (vitamin D3) 1,250 mcg (50,000 unit) capsule 50,000 unit PO WEEKLY Qty: 8 1RF Follow-up/Referrals: Connor Urena MD [Physician] - Idris Carvalho DO [Primary Care Provider] -
== END 2025-02-22 16:20 | disposition home or self-care (01) ==
PROVIDERS: Emergency Medicine; Emergency Provider Emergency Medicine; PCP Internal Medicine
DX: R19.7 Diarrhea, unspecified (principal); R10.32 Left lower quadrant pain; K58.9 Irritable bowel syndrome, unspecified; F41.9 Anxiety disorder, unspecified; Z85.43 Personal history of malignant neoplasm of ovary; Z90.710 Acquired absence of both cervix and uterus; K82.4 Cholesterolosis of gallbladder; K82.8 Other specified diseases of gallbladder
CPT/HCPCS: 36415; 74177; 76705; 80053; 81003; 83690; 85025; 96360; 99284; J7030; Q9967